=== PATIENT | female | born 1965 | race Caucasian/White ===

== ENCOUNTER 2018-05-14 08:33 | Emergency (ER) | payer OTHER ==
[~2018-05-14] VITALS: Ht 162.6 cm; Wt 90.7 kg
--- NOTE | 2018-05-14 08:59 | ED ANKLE/FOOT INJURY COMPLAINT ---
History of Present Illness General Chief Complaint: Foot or Ankle Injury Stated Complaint: FALL LFT FOOT PAIN Source: patient Exam Limitations: no limitations Vital Signs & Intake/Output Vital Signs & Intake/Output Vital Signs Date Time Temp Pulse Resp B/P B/P Pulse O2 O2 Flow FiO2 Mean Ox Delivery Rate 05/14 0839 97.8 78 18 153/88 97 Room Air Allergies Coded Allergies: Sulfa (Sulfonamide Antibiotics) (RASH 05/14/18) Triage Note: PT STATES SHE SLIPPED DOWN 4 STAIRS AND NOW HAS SWELLING TO RIGHT FOOT. PT STATES LAST NIGHT WHEN SHE STEPPED ON IT EVERYTHING SEEMED TO GET WORSE. Triage Nurses Notes Reviewed? yes Occurred: yesterday Duration: day(s): (4), constant, continues in ED Timing: single episode today Severity: moderate, severe Severity Numbers: 7 Pain/Injury Location: Left: Foot, Ankle. Method of Injury: fall No Modifying Factors: none Modifying Factors: Worsens With: movement. Associated Symptoms: swelling LMP (ages 10-50): unknown : No Patient currently breastfeeds: No HPI: 52 a female with no past medical history presentS for evaluation pain and swelling in her left foot. Patient reports that 4 days ago she slipped down some stairs causing pain to her left foot and ankle. At that time the pain was minor she was able to walk without difficulty. Last night while she was walking the pain became more severe she felt a crunching sensation in her foot and ankle. The pain is located diffusely over the dorsum of the foot and anterior ankle. It is worse with movement and weightbearing. No numbness or tingling no knee pain swelling or pain. She did not take any medicine for pain. (René Land) Past History Travel History Traveled to [place] past 21 day No Medical History Any Pertinent Medical History? see below for history Surgical History Surgical History: non-contributory Psychosocial History What is your primary language Irish Tobacco Use: Quit >30 days ago ETOH Use: occasional use Illicit Drug Use: denies illicit drug use Family History Hx Contributory? No (René Land) Review of Systems Review of Systems Constitutional: Reports: no symptoms. EENTM: Reports: no symptoms. Respiratory: Reports: no symptoms. Cardiovascular: Reports: no symptoms. GI: Reports: no symptoms. Genitourinary: Reports: no symptoms. Musculoskeletal: Reports: joint pain, joint swelling. Skin: Reports: no symptoms. Neurological/Psychological: Reports: no symptoms. Hematologic/Endocrine: Reports: no symptoms. Immunologic/Allergic: Reports: no symptoms. All Other Systems: Reviewed and Negative (René Land) Physical Exam Physical Exam General Appearance: well developed/nourished, no apparent distress, alert, awake Head: atraumatic, normal appearance Eyes: Bilateral: normal appearance, PERRL, EOMI. Ears, Nose, Throat: hearing grossly normal Neck: normal inspection, supple, full range of motion Cardiovascular/Respiratory: no respiratory distress Leg/Knee/Thigh Left: normal range of motion, normal inspection Leg/Knee/Thigh Right: normal range of motion, normal inspection Ankle Left: normal inspection, soft tissue tenderness, swelling, tenderness, limited range of motion, THERE IS TENDERNESS TO PALPATION OF THE ANTERIOR ANKLE. mILD SOFT TISSUE SWELLING. nO BRUISING NO GROSS DEFORMITY RANGE OF MOTION REDUCED DUE TO PAIN Ankle Right: normal inspection, normal range of motion Foot Left: limited range of motion, soft tissue tenderness, swelling, THERE IS PAIN AND MILD SOFT TISSUE SWELLING OVER THE DORSUM OF THE LEFT FOOT. nO BRUISING NO GROSS DEFORMITIES NEUROVASCULAR SUPPLY INTACT THE LEFT LOWER EXTREMITY Foot Right: normal inspection, normal range of motion Neuro/Vascular: normal motor function, normal sensation Tendon: normal tendon function Psychiatric: awake, alert, oriented x 3 Skin: intact, normal color, warm/dry (René Land) Progress Differential Diagnosis: septic arthritis, gout, fracture, dislocation, sprain, contusion Plan of Care: Orders Procedure Date/time Status XRY-FOOT COMPLETE, LEFT 05/14 844 Active XRY-ANKLE 3 OR MORE VIEWS L 05/14 844 Active Patient is here with pain and swelling in the left foot and ankle after a fall 4 days ago. Neurovascular supply is intact patient medicated with Motrin. X-rays of the foot and ankle obtained. X-rays are negative for fracture. Osorio wrap applied. Advised rest ice elevation compression. Patient declines pain medication or crutches. She has crutches at home. Advised her to follow-up with Dr. Broderick. Discussed return precautions in detail. Patient agrees WITH the plan. Diagnostic Imaging: Viewed by Me: Radiology Read. Discussed w/RAD: Radiology Read. Radiology Impression: PATIENT: BRAYAN WATT PRESENT AGE: 52 PATIENT ACCOUNT NO: [id number] : 64 LOCATION: [facility] ORDERING PHYSICIAN: René MOORE SERVICE DATE: 05/14/18 EXAM TYPE: RAD - XRY-ANKLE 3 OR MORE VIEWS L; XRY-FOOT COMPLETE, LEFT EXAMINATION: XR FOOT, LEFT XR ANKLE, LEFT CLINICAL INFORMATION: 52-year-old female presented with left foot and ankle pain. Status post fall one week ago. COMPARISON: None TECHNIQUE: 3 views each of the left foot and ankle were obtained. Total of 6 images. FINDINGS: LEFT ANKLE: The bony alignment is intact. The cortices are intact. Articular margins, joint space appear within normal limit. The soft tissues are unremarkable. LEFT FOOT: The bony alignment is intact. The cortices are intact. Subarticular sclerosis and new bone formations are noted overlying the dorsal aspect of the talonavicular joint, consistent with osteoarthrosis. Note is also made of enthesopathy at the insertional site of the Achilles tendon to the calcaneus. No radiographic evidence of any displaced fracture, subluxation. No deep foreign body. IMPRESSION: 1. No radiographic evidence of any displaced fracture, subluxation or dislocation is seen within the left ankle and left foot. 2. Incidental note is made of [id number] osteoarthrosis along the dorsal aspect of the talonavicular joint. Note is also made of minimal enthesopathy at the insertional site of the Achilles tendon to the calcaneus. DICTATED BY: Millicent Morales MD DATE/TIME DICTATED:05/14/18920 COLOR MAKER:CHELSY DATE/TIME TRANSCRIBED:05/14/18920 CONFIDENTIAL, DO NOT COPY WITHOUT APPROPRIATE AUTHORIZATION. (Benji MOORE,René) Departure Departure Disposition: HOME OR SELF CARE Condition: Stable Clinical Impression Primary Impression: Foot sprain Qualifiers: Encounter type: initial encounter Laterality: left Qualified Code: S93.602A - Unspecified sprain of left foot, initial encounter Referrals: James Broderick DPM Patient Has No Primary Care Dr (PCP/Family) Additional Instructions: Rest, avoid excessive weightbearing walking OR physical activity. Tylenol and ibuprofen as needed for pain. Wear Osorio wrap. Walk with crutches. Foot elevated and apply ice for 15-20 minutes every few hours. Make a follow-up with the primary care doctor and provided compensation consulting manager Dr. Broderick. MONIOTR symptoms return with any concerns. Departure Forms: Customer Survey General Discharge Information (René Land) PA/SQL DEVELOPER Co-Sign Statement Statement: ED Attending supervision documentation- [] I saw and evaluated the patient. I have also reviewed all the pertinent lab results and diagnostic results. I agree with the findings and the plan of care as documented in the PA's/SQL DEVELOPER's documentation. [X] I have reviewed the ED Record and agree with the PA's/SQL DEVELOPER's documentation. [] Additions or exceptions (if any) to the PAs/SQL DEVELOPER's note and plan are summarized below: [] (Emi PARSII,Winston Chappell)
--- NOTE | 2018-05-14 10:06 | RADIOLOGY REPORT ---
EXAMINATION: XR FOOT, LEFT XR ANKLE, LEFT CLINICAL INFORMATION: 52-year-old female presented with left foot and ankle pain. Status post fall one week ago. COMPARISON: None TECHNIQUE: 3 views each of the left foot and ankle were obtained. Total of 6 images. FINDINGS: LEFT ANKLE: The bony alignment is intact. The cortices are intact. Articular margins, joint space appear within normal limit. The soft tissues are unremarkable. LEFT FOOT: The bony alignment is intact. The cortices are intact. Subarticular sclerosis and new bone formations are noted overlying the dorsal aspect of the talonavicular joint, consistent with osteoarthrosis. Note is also made of enthesopathy at the insertional site of the Achilles tendon to the calcaneus. No radiographic evidence of any displaced fracture, subluxation. No deep foreign body. IMPRESSION: 1. No radiographic evidence of any displaced fracture, subluxation or dislocation is seen within the left ankle and left foot. 2. Incidental note is made of [id number] osteoarthrosis along the dorsal aspect of the talonavicular joint. Note is also made of minimal enthesopathy at the insertional site of the Achilles tendon to the calcaneus.
[2018-05-14 10:18] VITALS: BP 140/80
== END 2018-05-14 10:19 ==
LOC: ERH 08:33
DX: S93.602A Unspecified sprain of left foot, initial encounter (principal); W18.43XA Slipping, tripping and stumbling without falling due to stepping from one level to another, initial encounter; Y93.01 Activity, walking, marching and hiking
CPT/HCPCS: 73610-LT; 73630-LT